=== PATIENT | female | born 2000 | race Caucasian/White ===

== ENCOUNTER 2024-04-30 08:31 | Emergency (ER) | payer SELFPAY ==
[2024-04-30 08:35] VITALS: BP 111/78; PULSE 120; TEMP 37.2; O2SAT 97; BMI 41.2
[2024-04-30] MEDS: 0.9 % SODIUM CHLORIDE 1,000 ML 1000 ML IV (09:05)
[2024-04-30] MEDS: ONDANSETRON PF 4 MG/2 ML VIAL IV (09:06)
[2024-04-30 09:07] LABS: Basophils Percent Auto 0.1 % (0.2-2.0); Eosinophils Absolute Auto 0.1 10^3/uL (0.0-0.7); Eosinophils Percent Auto 0.4 % (0.9-7.0); Hematocrit 40.4 % (36.0-48.0); Immature Granulocytes Abs Auto 0.04 10^3/uL (0.00-0.03); Immature Granulocytes Pct Auto 0.3 % (0.0-0.5); Lymphocytes Absolute Auto 0.4 10^3/uL (1.2-3.8); Lymphocytes Percent Auto 2.7 % (20.5-60.0); Mean Corpuscular HGB Conc 32.2 g/dL (29.9-35.2); Mean Corpuscular Hemoglobin 25.5 pg (26.7-34.0); Mean Corpuscular Volume 79.2 fL (81.0-99.0); Mean Platelet Volume 10.3 fL (9.5-13.5); Monocytes Absolute Auto 0.7 10^3/uL (0.3-0.8); Monocytes Percent Auto 4.5 % (1.7-12.0); Neutrophils Absolute Auto 13.4 10^3/uL (1.4-6.5); Platelet Count 236 10^3/uL (150-450); Red Cell Distribution Width 13.4 % (11.0-15.0); White Blood Count 14.6 10^3/uL (4.0-11.0)
[2024-04-30 09:19] LABS: Influenza Virus A Antigen Negative; Influenza Virus B Antigen Negative; Internal Control Within Normal Limits
[2024-04-30 09:23] LABS: Alanine Aminotransferase 20 U/L (14-59); Albumin Globulin Ratio 0.9; Albumin Level 3.7 g/dL (3.4-5.0); Alkaline Phosphatase 71 U/L (46-116); Aspartate Amino Transferase 15 U/L (15-37); BUN Creatinine Ratio 22.2; Bilirubin Total 0.7 mg/dL (0.2-1.0); Calcium 8.7 mg/dL (8.5-10.1); Chloride 102 mmol/L (98-107); Estimated GFR (African America >60 (>=60 mL/min/1.73m^2); Estimated GFR (Non-African Ame >60 (>=60 mL/min/1.73m^2); Globulin 4.3 g/dL; Glucose 130 mg/dL (74-106); Sodium 137 mmol/L (136-145)
[2024-04-30 10:07] VITALS: BP 121/69; PULSE 110; O2SAT 97
--- NOTE | 2024-04-30 14:00 | ED.GENADUL1 ---
HPI HPI - General Adult General Chief complaint: Nausea/Vomiting/Diarrhea Stated complaint: vomiting Time Seen by Provider: 04/30/24 08:36 Source: patient Mode of arrival: walk-in Limitations: no limitations History of Present Illness HPI narrative: Patient presents to the emergency department with chief complaint of waking up in the left 3 AM with nausea and multiple episodes of vomiting. She has not had diarrhea. She had a little bit of birthday cake to eat last night and denies alcohol use or marijuana use. She denies any possibility of . Emesis has been nonbloody. Related Data Previous Rx's ?Medication ?Instructions ?Recorded ondansetron 4 mg disintegrating 4 mg PO Q6H #10 tabs 04/30/24 tablet Allergies Allergy/AdvReac Type Severity Reaction Status Date / Time No Known Drug Allergies Allergy Verified 04/30/24 08:34 Opioid HPI Opioid Management Most Recent Opioid Data: No Data to Display Review of Systems ROS Narrative All other systems are reviewed and are negative other than what is mentioned in the HPI. PFSH PFSH Social History Little interest or pleasure in doing things: not at all Feeling down, depressed, or hopeless: not at all Exam Narrative Exam Narrative: Afebrile tachycardic with otherwise stable vital signs. Patient does not appear toxic or acutely distressed. HEENT exam is normal to inspection. Neck is supple. Lung sounds are clear to auscultation bilaterally with good air entry. Heart has regular rate and rhythm. S1 and S2 are normal. Abdomen soft and fairly nontender. She has a negative Kenyon sign. No guarding is noted. Bowel sounds are hypoactive. There is no CVA tenderness. Lower extremities are warm and dry. She does not have unilateral leg swelling or calf tenderness. Speech and mentation are clear and intact. There is no facial asymmetry and she moves all extremities actively. Constitutional Vital Signs, click to edit/add: Last Vital Signs Temp 99.0 F 04/30/24 08:35 Pulse 110 H 04/30/24 10:07 Resp 20 04/30/24 10:07 BP 121/69 04/30/24 10:07 Pulse Ox 97 04/30/24 10:07 O2 Del Method Room Air 04/30/24 10:07 Course Vital Signs Vital signs: Vital Signs Temperature 99.0 F 04/30/24 08:35 Pulse Rate 120 H 04/30/24 08:35 Respiratory Rate 20 04/30/24 08:35 Blood Pressure 111/78 04/30/24 08:35 Pulse Oximetry 97 04/30/24 08:35 Oxygen Delivery Method Room Air 04/30/24 08:35 Temperature 99.0 F 04/30/24 08:35 Pulse Rate 110 H 04/30/24 10:07 Respiratory Rate 20 04/30/24 10:07 Blood Pressure 121/69 04/30/24 10:07 Pulse Oximetry 97 04/30/24 10:07 Oxygen Delivery Method Room Air 04/30/24 10:07 Medical Decision Making MDM Narrative Medical decision making narrative: Patient presents with gastritis symptoms likely viral etiology. Her blood work is unremarkable. She tested negative for influenza. Patient was treated with a liter of IV fluids and IV Zofran. She feels improved upon discharge she is placed on Zofran and provided with a work note. Follow-up instructions are provided and she is to return anytime for worsening symptoms. Lab Data Labs: Lab Results 04/30/24 04/30/24 Range/Units 08:55 09:01 WBC 14.6 H (4.0-11.0) 10^3/uL RBC 5.10 (4.20-5.40) 10^6/uL Hgb 13.0 (12.0-16.0) g/dL Hct 40.4 (36.0-48.0) % MCV 79.2 L (81.0-99.0) fL MCH 25.5 L (26.7-34.0) pg MCHC 32.2 (29.9-35.2) g/dL RDW 13.4 (11.0-15.0) % Plt Count 236 (150-450) 10^3/uL MPV 10.3 (9.5-13.5) fL Neut % (Auto) 92.0 H (43.0-75.0) % Lymph % (Auto) 2.7 L (20.5-60.0) % [place] % (Auto) 4.5 (1.7-12.0) % Eos % (Auto) 0.4 L (0.9-7.0) % Baso % (Auto) 0.1 L (0.2-2.0) % Neut # (Auto) 13.4 H (1.4-6.5) 10^3/uL Lymph # (Auto) 0.4 L (1.2-3.8) 10^3/uL [place] # (Auto) 0.7 (0.3-0.8) 10^3/uL Eos # (Auto) 0.1 (0.0-0.7) 10^3/uL Baso # (Auto) 0.0 (0.0-0.1) 10^3/uL Abs Immat Gran (auto) 0.04 H (0.00-0.03) 10^3/uL Imm/Tot Granulo (auto) 0.3 (0.0-0.5) % Sodium 137 (136-145) mmol/L Potassium 4.0 (3.5-5.1) mmol/L Chloride 102 (98-107) mmol/L Carbon Dioxide 24.0 (21.0-32.0) mmol/L Anion Gap 15.0 BUN 14.0 (7.0-18.0) mg/dL Creatinine 0.63 (0.55-1.02) mg/dL Est GFR ( Amer) >60 (>=60 mL/min/1.73m^2) Est GFR (Non-Af Amer) >60 (>=60 mL/min/1.73m^2) BUN/Creatinine Ratio 22.2 Glucose 130 H (74-106) mg/dL Calcium 8.7 (8.5-10.1) mg/dL Total Bilirubin 0.7 (0.2-1.0) mg/dL AST 15 (15-37) U/L ALT 20 (14-59) U/L Alkaline Phosphatase 71 (46-116) U/L Total Protein 8.0 (6.4-8.2) g/dL Albumin 3.7 (3.4-5.0) g/dL Globulin 4.3 g/dL Albumin/Globulin Ratio 0.9 Influenza Type A Ag Negative Influenza Type B Ag Negative Discharge Plan Discharge Stand Alone Forms: Work/School Release Chief Complaint: Nausea/Vomiting/Diarrhea Clinical Impression: Acute gastritis Qualifiers: Gastritis type: unspecified gastritis Gastritis bleeding: without bleeding Qualified Code(s): K29.00 - Acute gastritis without bleeding Patient Disposition: Home, Self-Care Time of Disposition Decision: 10:17 Condition: Good Mode of Transportation: Private Vehicle Prescriptions / Home Meds: New ondansetron 4 mg tablet,disintegrating 4 mg PO Q6H Qty: 10 0RF Print Language: Bulgarian Instructions: Gastritis (ED) Additional Instructions: Liquid diet for the next 6 to 8 hours. Advance diet gradually after that. Return for worsening symptoms. Referrals: Physician,Non-Staff, MD [Primary Care Provider] - 1 week Discharge Date/Time: 04/30/24 10:28
== END 2024-04-30 10:28 | disposition home or self-care (01) ==
PROVIDERS: Emergency Provider Emergency Medicine
DX: K29.00 Acute gastritis without bleeding (principal)
CPT/HCPCS: 36415; 80053; 85025; 87804; 96361; 96374; 99284; J2405

== ENCOUNTER 2024-07-22 23:47 | Emergency (ER) | payer SELFPAY ==
[2024-07-22 23:53] VITALS: BP 123/95; PULSE 96; TEMP 37.1; O2SAT 98; BMI 42.1
--- NOTE | 2024-07-23 00:35 | ED_ITS ---
HPI - Animal Bite General Chief Complaint: Animal Bite Stated Complaint: Thinks a bat bite her Time Seen by Provider: 07/23/24 00:35 Source: patient Mode of arrival: walk-in History of Present Illness HPI narrative: The patient is an otherwise healthy 24-year-old female who presents to the emergency department because there was an a bat exposure. The patient had been sleeping in her room when she awoke to a bat in her room. The patient stated her door was closed with a bat was in there. She does not know if she was bit. She was sleeping. Because the patient was concerned that she could have been exposed to rabies she presented to the emergency department for evaluation. She has never had the rabies vaccination series before. She denies any pain or discomfort at this time. Related Data Allergies Allergy/AdvReac Type Severity Reaction Status Date / Time No Known Drug Allergies Allergy Verified 07/22/24 23:58 Review of Systems ROS Narrative 10 Systems were reviewed, and unless not ed in the HPI, all other systems are reviewed, unremarkable, or noncontributory. PFSH PFS Social History Little interest or pleasure in doing things: not at all Feeling down, depressed, or hopeless: not at all Exam Narrative Exam Narrative: Prior to examining the patient, I have washed with hospital approved and provided Antiseptic Hand Floor Covering Printer Assistant and have also applied gloves.? Prior to touching the patient, I asked for consent to examine the patient.? General: Alert and oriented, well nourished, mild distress. Eye: PERRL, EOMI, normal conjunctiva. HENT: Normocephalic, normal hearing, moist oral mucosa, no scleral icterus, Lungs: Clear to auscultation and percussion, non-labored respiration. No rhonchi, rales, wheezing Heart: Normal rate, regular rhythm, no murmur, gallop or edema. Musculoskeletal: Normal range of motion and strength, no tenderness or swelling. Skin: Skin is warm, dry and pink, no rashes or lesions. Neurologic: Awake, alert, and oriented X3, CN II-XII intact. Psychiatric: Cooperative, appropriate mood and affect.? Following the conclusion of the examination, I have washed my hands thoroughly a fter removing examination gloves. Constitutional Vital Signs, click to edit/add: Last Vital Signs Temp 98.8 F 07/22/24 23:53 Pulse 96 H 07/22/24 23:53 Resp 18 07/22/24 23:53 BP 123/95 H 07/22/24 23:53 Pulse Ox 98 07/22/24 23:53 O2 Del Method Room Air 07/22/24 23:53 Course Course Hospital Course: Patient was seen and evaluated. Current recommendations are of the patient had a bat exposure in a close room and they were sleeping that the patient should be appropriately treated with rabies immunoglobulin and rabies vaccine. Vital Signs Vital signs: Vital Signs Temperature 98.8 F 07/22/24 23:53 Pulse Rate 96 H 07/22/24 23:53 Respiratory Rate 18 07/22/24 23:53 Blood Pressure 123/95 H 07/22/24 23:53 Pulse Oximetry 98 07/22/24 23:53 Oxygen Delivery Method Room Air 07/22/24 23:53 Temperature 98.8 F 07/22/24 23:53 Pulse Rate 96 H 07/22/24 23:53 Respiratory Rate 18 07/22/24 23:53 Blood Pressure 123/95 H 07/22/24 23:53 Pulse Oximetry 98 07/22/24 23:53 Oxygen Delivery Method Room Air 07/22/24 23:53 MDM - Animal Bite MDM Narrative Medical decision making narrative: Patient did consent to receiving rabies immunoglobulin and rabies vaccination. She will be made aware of the vaccination timing series. Patient should still follow-up with her physician for further evaluation and care. Differential Diagnosis Differential diagnosis: Likely bite by animal and rabies contact Medical Records Attestation: I reviewed the patient's medical records. Discharge Plan Discharge Chief Complaint: Animal Bite Clinical Impression: Exposure to bat without known bite Patient Disposition: Home, Self-Care Time of Disposition Decision: 00:39 Condition: Good Mode of Transportation: Private Vehicle Print Language: Amharic Instructions: Rabies Vaccine (By injection), Rabies Immune Globulin (By injection), Rabies (ED) Additional Instructions: Thank you for trusting me with your care today. Please make sure you follow-up with the entire vaccination series. This is extremely important as the shots are timed out and should be done on particular days. Today is day 0. You also need to receive the vaccine on day 3, 7, and 14 which equate to: July 27, July 30, and August 06. Please return if you notice any other problems with your skin or if you develop any symptoms. Referrals: Physician,Non-Staff, MD [Primary Care Provider] - 1 week Procedures ED Procedure Instructions Procedures Procedures: none
[2024-07-23] MEDS: RABIES IMMUNE GLOBULIN/PF 300 UNIT/2 ML VIAL 2086.52 UNIT IM (01:26)
[2024-07-23] MEDS: RABIES VACCINE/PF 1 ML VIAL IM (01:50)
== END 2024-07-23 02:26 | disposition home or self-care (01) ==
PROVIDERS: Emergency Provider Emergency Medicine
DX: Z20.3 Contact with and (suspected) exposure to rabies (principal); Z23 Encounter for immunization
CPT/HCPCS: 90377; 90471; 90472; 90675; 99284

== ENCOUNTER 2024-07-27 18:08 | Emergency (ER) | payer SELFPAY ==
[2024-07-27 18:30] VITALS: BP 142/91; PULSE 84; TEMP 36.9; O2SAT 99; BMI 40.2
--- NOTE | 2024-07-27 18:38 | ED.GENADUL1 ---
HPI HPI - General Adult General Chief complaint: Recheck/Abnormal Lab/Rx Stated complaint: Possible Rabies Exposure Time Seen by Provider: 07/27/24 18:32 Source: patient Mode of arrival: walk-in Limitations: no limitations History of Present Illness HPI narrative: 24-year-old female presents because she needs her second rabies vaccine dose. This is day #3. She has been exposed to a bat in her room while she was sleeping. She did not have a known bite. She has no symptoms. Related Data Home Medications ?Medication ?Instructions ?Recorded ?Confirmed No Known Home Medications 07/27/24 07/27/24 Allergies Allergy/AdvReac Type Severity Reaction Status Date / Time No Known Drug Allergies Allergy Verified 07/27/24 18:30 Review of Systems ROS Narrative A ten point review of systems is negative except as noted above. [facility] Medical History (Updated 07/27/24 @ 18:38 by Bharathi Flor MD) Heart murmur of ?P96.89 - Other specified conditions originating in the period (ICD-10) ?R01.1 - Cardiac murmur, unspecified (ICD-10) Social History Little interest or pleasure in doing things: not at all Feeling down, depressed, or hopeless: not at all Exam Narrative Exam Narrative: Nurses note and vital signs reviewed and patient is not hypoxic. General: The patient appears well and in no apparent distress. Patient is resting comfortably on cart. Skin: Warm, dry, no pallor noted. There is no rash noted. Head: Normocephalic, atraumatic Eye: Normal conjunctiva, no drainage Ears, Nose, Mouth, and Throat: oral mucosa is moist. Nares patent. Cardiovascular: Regular Rate and Rhythm Respiratory: Patient is in no distress, no accessory muscle use, lungs are clear to auscultation, no wheezing, rales or rhonchi Back: non-tender GI: Soft and nontender Musculoskeletal: No joint swelling Neurological: A&O, normal speech Psychiatric: Cooperative Constitutional Vital Signs, click to edit/add: Last Vital Signs Temp 98.5 F 07/27/24 18:30 Pulse 84 07/27/24 18:30 Resp 18 07/27/24 18:30 BP 142/91 H 07/27/24 18:30 Pulse Ox 99 07/27/24 18:30 O2 Del Method Room Air 07/27/24 18:30 Course Vital Signs Vital signs: Vital Signs Temperature 98.5 F 07/27/24 18:30 Pulse Rate 84 07/27/24 18:30 Respiratory Rate 18 07/27/24 18:30 Blood Pressure 142/91 H 07/27/24 18:30 Pulse Oximetry 99 07/27/24 18:30 Oxygen Delivery Method Room Air 07/27/24 18:30 Temperature 98.5 F 07/27/24 18:30 Pulse Rate 84 07/27/24 18:30 Respiratory Rate 18 07/27/24 18:30 Blood Pressure 142/91 H 07/27/24 18:30 Pulse Oximetry 99 07/27/24 18:30 Oxygen Delivery Method Room Air 07/27/24 18:30 Medical Decision Making MDM Narrative Medical decision making narrative: Her second dose, day #3, was ordered and she is able to be discharged home. Medical Records Medical records reviewed: Yes I reviewed the patient's medical records Discharge Plan Discharge Chief Complaint: Recheck/Abnormal Lab/Rx Clinical Impression: Exposure to bat without known bite Patient Disposition: Home, Self-Care Time of Disposition Decision: 18:38 Condition: Good Mode of Transportation: Private Vehicle Prescriptions / Home Meds: No Action No Known Home Medications Print Language: Serbian Instructions: Rabies Vaccine (By injection) Referrals: Physician,Non-Staff, MD [Primary Care Provider] - 1 week
[2024-07-27] MEDS: RABIES VACCINE/PF 1 ML VIAL IM (19:07)
--- NOTE | 2024-07-27 19:17 | PC.NURSE ---
i gave this patient verbal and written discharge order and this patient voices yes to understanding these. at time of discharge this patient voices no concerns and shows no signs of distress
== END 2024-07-27 19:17 | disposition home or self-care (01) ==
PROVIDERS: Emergency Provider Emergency Medicine
DX: Z20.3 Contact with and (suspected) exposure to rabies (principal); Z23 Encounter for immunization
CPT/HCPCS: 90471; 90675; 99284

== ENCOUNTER 2024-08-06 07:35 | Outpatient (RCR) | payer SELFPAY ==
[2024-07-30] MEDS: RABIES VACCINE/PF 1 ML VIAL IM (15:28)
[2024-08-06 09:23] VITALS: BP 123/78; PULSE 79; TEMP 36.4; O2SAT 98
[2024-08-06] MEDS: RABIES VACCINE/PF 1 ML VIAL IM (09:30)
== END 2024-08-09 07:32 | disposition home or self-care (01) ==
LOC: INF 07:35
PROVIDERS: Visit Provider Emergency Medicine
DX: Z20.3 Contact with and (suspected) exposure to rabies (principal); Z23 Encounter for immunization
CPT/HCPCS: 90471; 90675